=== PATIENT | female | born 1975 | race Caucasian/White ===

== ENCOUNTER 2024-08-25 11:32 | Emergency (ER) | payer MEDICAID ==
[~2024-08-25] VITALS: Ht 157.5 cm; Wt 63.0 kg
[2024-08-25 11:37] VITALS: TEMP 98.3; O2SAT 100
[2024-08-25 13:03] LABS: BASOPHILS % 0.6 % (0.0-2.0); EOSINOPHILS % 1.4 % (0.0-5.0); HEMOGLOBIN. 13.4 g/dL (12.0-16.0); LYMPHOCYTES % 25.7 % (20.0-50.0); MEAN CORPUSCULAR HEMOGLOBIN 30.6 pg (28.0-32.0); MEAN CORPUSCULAR HGB CONC 32.6 g/dL (31.0-37.0); MEAN CORPUSCULAR VOLUME 93.9 fL (81.0-99.0); MEAN PLATELET VOLUME 7.9 fl (7.4-10.4); MONOCYTES % 5.6 % (2.0-8.0); NEUTROPHILS % 66.7 % (40.0-76.0); PLATELET 293 x1000/uL (130-400); RED BLOOD CELL COUNT 4.37 mill/uL (4.2-5.4); RED CELL DISTRIBUTION WIDTH 13.1 % (11.6-14.6); WHITE BLOOD COUNT 6.9 x1000/uL (4.5-11.0)
[2024-08-25 13:07] LABS: CHLORIDE 106 mEq/L (98-107); POTASSIUM 4.3 mEq/L (3.5-5.1); SODIUM 140 mEq/L (136-145)
[2024-08-25 13:08] LABS: CARBON DIOXIDE 26 mEq/L (21-32)
[2024-08-25 13:09] LABS: CALCIUM 9.7 mg/dL (8.7-10.4)
[2024-08-25 13:13] LABS: CREATININE 0.8 mg/dL (0.6-1.0); GLUCOSE 98 mg/dL (70-105); UREA NITROGEN BLOOD 10 mg/dL (9-23)
[2024-08-25 15:22] LABS: ALANINE AMINOTRANSFERASE 15 IU/L (10-49); ALBUMIN 4.4 g/dL (3.2-4.8); ASPARTATE AMINOTRANSFERASE 23 IU/L (<34); BILIRUBIN TOTAL 0.4 mg/dL (0.1-1.0); PROTEIN TOTAL 7.9 g/dL (6.0-8.3)
[2024-08-25 15:27] LABS: BILIRUBIN DIRECT < 0.1 mg/dL (<=3.0); TROPONIN I HIGH SENSITIVITY < 4 ng/L (3.0-34)
[2024-08-25 16:15] VITALS: BP 111/68; PULSE 61; RESP 16; O2SAT 98
[2024-08-25] MEDS: IBUPROFEN 400MG TABLET PO NR (16:17)
== END 2024-08-25 16:22 | disposition home or self-care (01) ==
LOC: ER 11:32
DX: R07.89 Other chest pain (principal)
CPT/HCPCS: 80076; 80048; 83690; 85025; 84484; 36415; 71045; 93005; 99285; Z7610